=== PATIENT | female | born 1970 | race African-American/Black ===

== ENCOUNTER → 2017-03-13 | Day surgery (SDC) | payer MEDICARE, MEDICAID ==
[~2017-03-13] VITALS: Ht 160 cm; Wt 93.9 kg
[~2017-03-13] MED LIST: ALBU90AE IH; ALD50 PO; AMBR5TAB3 PO; CHOL20004 PO; CYAN100069 PO; DABI150C PO; FURO-151 PO; HYDR-3933 PO; HYDROMORPHONE HCL/PF 2MG/ML CPJ IV PRN; LABETALOL HCL 20MG/4ML CARPUJECT IV PRN; MEPERIDINE HCL/PF 25MG/ML CPJ IV PRN; METO5TAB69 PO; MORP30TA66 PO; ONDANSETRON HCL 4MG/2ML VIAL IV PRN; OXYC20TA56 PO; POTA20LI PO; PREG75CA PO; REMODULIN IV; RIOC2.5T PO
[2017-03-13 14:42] LABS: UCG SCREEN NEGATIVE
== END | disposition home or self-care (01) ==
LOC: OR 12:02
PROVIDERS: ATTEND Internal Medicine Gastroenterology
DX: E66.01 Morbid (severe) obesity due to excess calories (principal); I27.2 Other secondary pulmonary hypertension; I50.9 Heart failure, unspecified; E11.9 Type 2 diabetes mellitus without complications; J44.9 Chronic obstructive pulmonary disease, unspecified; J45.909 Unspecified asthma, uncomplicated; Z53.9 Procedure and treatment not carried out, unspecified reason
CPT/HCPCS: 81025

== ENCOUNTER 2017-07-02 10:20 | Inpatient (IN) | payer MEDICARE, MEDICAID ==
[~2017-07-02] VITALS: Ht 160 cm; Wt 86.6 kg
[~2017-07-02 10:20] MED LIST changes: -HYDROMORPHONE HCL/PF 2MG/ML CPJ IV PRN; -LABETALOL HCL 20MG/4ML CARPUJECT IV PRN; -MEPERIDINE HCL/PF 25MG/ML CPJ IV PRN; -ONDANSETRON HCL 4MG/2ML VIAL IV PRN; -POTA20LI PO; +POTA20LI2 PO
[2017-07-02] MEDS ORDERED: LEVOFLOXACIN 750MG PREMIX 150 ML IV STA (10:52)
[2017-07-02] MEDS ORDERED: IPRATROPIUM BROMIDE (0.02%) 0.5MG/2.5ML NEB HHN STA (10:52)
[2017-07-02] MEDS ORDERED: METHYLPREDNISOLONE SOD SUCC 125 MG/2 ML VIAL IV STA (10:52)
[2017-07-02] MEDS ORDERED: ALBUTEROL (0.083%) 2.5MG/3ML NEB HHN STA (10:52)
[2017-07-02] MEDS ORDERED: MORPHINE SULFATE 4 MG/ML CPJ (NOT FOR IM USE) IV ONE (11:00)
[2017-07-02] MEDS ORDERED: ONDANSETRON HCL 4MG/2ML VIAL IV ONE (11:00)
[2017-07-02 11:12] LABS: HEMATOCRIT. 30.5 % (36.0-48.0); HEMOGLOBIN. 9.8 g/dL (12.0-16.0); MEAN CORPUSCULAR HEMOGLOBIN 21.2 pg (28.0-32.0); MEAN CORPUSCULAR VOLUME 66.1 fL (81.0-99.0); MEAN PLATELET VOLUME 6.4 fl (7.4-10.4); PLATELET 263 x1000/uL (130-400); RED BLOOD CELL COUNT 4.62 mill/uL (4.2-5.4); RED CELL DISTRIBUTION WIDTH 16.4 % (11.6-14.6)
[2017-07-02 11:22] LABS: CARBON DIOXIDE 27 mEq/L (21-32); CHLORIDE 100 mEq/L (98-107)
[2017-07-02 11:27] LABS: PROTHROMBIN TIME 10.8 sec (9.4-11.6)
[2017-07-02 11:28] LABS: TROPONIN I < 0.02 ng/mL (0.00-0.04)
[2017-07-02] MEDS ORDERED: FUROSEMIDE 40MG/4ML VIAL IVP NR (11:45)
[2017-07-02] MEDS ORDERED: POTASSIUM CHLORIDE 20MEQ TABLET SR PO NR (11:45)
[2017-07-02 12:05] LABS: HCG SCREEN NEGATIVE
[2017-07-02] MEDS ORDERED: POTASSIUM CHLORIDE 20MEQ/PACKET PO ONE (12:45)
[2017-07-02] MEDS ORDERED: IPRATROPIUM/ALBUTEROL 0.5-3(2.5)MG/3ML NEB INH PRN (13:00)
[2017-07-02] MEDS ORDERED: DOCUSATE SODIUM 100MG CAPSULE PO PRN (13:00)
[2017-07-02] MEDS ORDERED: ACETAMINOPHEN 325MG TABLET PO PRN (13:00)
[2017-07-02 13:40] VITALS: BP 121/52
[2017-07-02 13:45] LABS: PLATELET ESTIMATE NORMAL
[2017-07-02] MEDS ORDERED: SODIUM CHLORIDE 0.9% 10ML VIAL ONE (14:08)
[2017-07-02] MEDS ORDERED: IOHEXOL-350 100 ML BOTTLE ONE (14:08)
[2017-07-02] MEDS ORDERED: LETAIRIS XX SCH (15:45)
[2017-07-02] MEDS ORDERED: IPRATROPIUM/ALBUTEROL 0.5-3(2.5)MG/3ML NEB HHN PRN (15:45)
[2017-07-02] MEDS ORDERED: ADEMPAS XX SCH (15:45)
[2017-07-02] MEDS ORDERED: REMODULIN XX SCH (15:45)
[2017-07-02] MEDS: MORPHINE SULFATE 2 MG/ML CPJ (NOT FOR IM USE) IV PRN ×2 (16:38→20:48)
[2017-07-02] MEDS ORDERED: ASPIRIN 81MG TABLET PO NR (17:23)
[2017-07-02] MEDS: ADEMPAS 2.5 MG XX SCH (17:51)
[2017-07-02 20:00] VITALS: BP 103/48
[2017-07-03] MEDS: IPRATROPIUM/ALBUTEROL 0.5-3(2.5)MG/3ML NEB HHN SCH ×6 (00:42→20:39)
[2017-07-03 00:46] VITALS: BP 126/56
[2017-07-03] MEDS: MORPHINE SULFATE 2 MG/ML CPJ (NOT FOR IM USE) IV PRN (00:50)
[2017-07-03 04:00] VITALS: BP 112/51
[2017-07-03] MEDS: OMEPRAZOLE 20MG CAPSULE EXTENDED RELEASE PO SCH (06:33)
[2017-07-03 06:47] LABS: BASOPHILS % 0.2 % (0.0-2.0); HEMOGLOBIN. 8.5 g/dL (12.0-16.0); LYMPHOCYTES % 9.3 % (20.0-50.0); MEAN CORPUSCULAR HEMOGLOBIN 21.2 pg (28.0-32.0); MEAN CORPUSCULAR VOLUME 67.2 fL (81.0-99.0); MEAN PLATELET VOLUME 6.9 fl (7.4-10.4); MONOCYTES % 3.5 % (2.0-8.0); PLATELET 247 x1000/uL (130-400); RED BLOOD CELL COUNT 4.02 mill/uL (4.2-5.4); RED CELL DISTRIBUTION WIDTH 16.6 % (11.6-14.6)
[2017-07-03 08:00] VITALS: BP 86/42
[2017-07-03] MEDS ORDERED: FUROSEMIDE 40MG/4ML VIAL IVP SCH (09:00)
[2017-07-03] MEDS ORDERED: POTASSIUM CHLORIDE 20MEQ TABLET SR PO NR (10:30)
[2017-07-03] MEDS: CELECOXIB 100MG CAPSULE PO SCH (10:56)
[2017-07-03] MEDS: ADEMPAS 2.5 MG XX SCH ×3 (10:56→16:56)
[2017-07-03] MEDS: LETAIRIS 10 MG TABLET XX SCH (10:56)
[2017-07-03] MEDS: GUAIFENESIN 600MG ER TABLET PO SCH ×2 (10:56→20:37)
[2017-07-03] MEDS: SPIRONOLACTONE 25MG TABLET PO SCH (10:57)
[2017-07-03] MEDS: MORPHINE SULFATE 4 MG/ML CPJ (NOT FOR IM USE) IV PRN ×3 (10:58→23:00)
[2017-07-03 11:56] VITALS: BP 102/53
[2017-07-03 15:49] VITALS: BP 119/53
[2017-07-03 20:00] VITALS: BP 98/43
[2017-07-04] VITALS (8 sets, daily range): BP systolic 87–109; BP diastolic 41–55
[2017-07-04] MEDS: IPRATROPIUM/ALBUTEROL 0.5-3(2.5)MG/3ML NEB HHN SCH ×6 (00:36→19:49)
[2017-07-04] MEDS: OMEPRAZOLE 20MG CAPSULE EXTENDED RELEASE PO SCH (06:03)
[2017-07-04 07:12] LABS: BASOPHILS % 0.9 % (0.0-2.0); EOSINOPHILS % 2.7 % (0.0-5.0); HEMATOCRIT. 24.9 % (36.0-48.0); HEMOGLOBIN. 7.8 g/dL (12.0-16.0); LYMPHOCYTES % 21.3 % (20.0-50.0); MEAN CORPUSCULAR HEMOGLOBIN 21.3 pg (28.0-32.0); MEAN CORPUSCULAR VOLUME 67.9 fL (81.0-99.0); MEAN PLATELET VOLUME 6.8 fl (7.4-10.4); MONOCYTES % 5.8 % (2.0-8.0); NEUTROPHILS % 69.3 % (40.0-76.0); PLATELET 244 x1000/uL (130-400); RED BLOOD CELL COUNT 3.67 mill/uL (4.2-5.4); RED CELL DISTRIBUTION WIDTH 16.8 % (11.6-14.6)
[2017-07-04] MEDS: SPIRONOLACTONE 25MG TABLET PO SCH (08:37)
[2017-07-04] MEDS: CELECOXIB 100MG CAPSULE PO SCH (08:37)
[2017-07-04] MEDS: LETAIRIS 10 MG TABLET XX SCH (08:37)
[2017-07-04] MEDS: ADEMPAS 2.5 MG XX SCH ×3 (08:39→16:46)
[2017-07-04] MEDS: GUAIFENESIN 600MG ER TABLET PO SCH ×2 (08:42→20:58)
[2017-07-04 11:22] LABS: T4 FREE 1.06 ng/dL (0.76-1.46)
[2017-07-04 12:01] LABS: HEMOGLOBIN 8.3 g/dL (12.0-16.0)
[2017-07-04] MEDS: TREPROSTINIL XX SCH (13:31)
[2017-07-04] MEDS: MORPHINE SULFATE 4 MG/ML CPJ (NOT FOR IM USE) IV PRN ×3 (13:47→23:21)
[2017-07-05] VITALS: BP 120/60
[2017-07-05] MEDS: IPRATROPIUM/ALBUTEROL 0.5-3(2.5)MG/3ML NEB HHN SCH ×7 (00:04→23:53)
[2017-07-05 04:00] VITALS: BP 95/40
[2017-07-05] MEDS: OMEPRAZOLE 20MG CAPSULE EXTENDED RELEASE PO SCH (06:17)
[2017-07-05 06:50] LABS: EOSINOPHILS % 7.1 % (0.0-5.0); HEMATOCRIT. 27.2 % (36.0-48.0); HEMOGLOBIN. 8.4 g/dL (12.0-16.0); LYMPHOCYTES % 29.4 % (20.0-50.0); MEAN CORPUSCULAR HEMOGLOBIN 20.9 pg (28.0-32.0); MEAN CORPUSCULAR VOLUME 67.7 fL (81.0-99.0); MEAN PLATELET VOLUME 6.7 fl (7.4-10.4); MONOCYTES % 5.4 % (2.0-8.0); NEUTROPHILS % 57.1 % (40.0-76.0); PLATELET 274 x1000/uL (130-400); RED BLOOD CELL COUNT 4.02 mill/uL (4.2-5.4); RED CELL DISTRIBUTION WIDTH 16.8 % (11.6-14.6)
[2017-07-05 07:18] LABS: CARBON DIOXIDE 24 mEq/L (21-32); CHLORIDE 104 mEq/L (98-107)
[2017-07-05] MEDS: MORPHINE SULFATE 4 MG/ML CPJ (NOT FOR IM USE) IV PRN ×3 (07:25→21:41)
[2017-07-05 07:43] VITALS: BP 119/54
[2017-07-05] MEDS: SPIRONOLACTONE 25MG TABLET PO SCH (08:59)
[2017-07-05] MEDS: LETAIRIS 10 MG TABLET XX SCH (08:59)
[2017-07-05] MEDS: GUAIFENESIN 600MG ER TABLET PO SCH ×2 (08:59→20:48)
[2017-07-05] MEDS: CELECOXIB 100MG CAPSULE PO SCH (08:59)
[2017-07-05] MEDS: ADEMPAS 2.5 MG XX SCH ×3 (09:01→16:46)
[2017-07-05] MEDS ORDERED: MORPHINE SULFATE 4 MG/ML CPJ (NOT FOR IM USE) IV NR (09:45)
[2017-07-05] MEDS ORDERED: POTASSIUM CHLORIDE 20MEQ TABLET SR PO SCH (10:00)
[2017-07-05] MEDS: FUROSEMIDE 40MG/4ML VIAL IVP SCH (10:15)
[2017-07-05] MEDS: POTASSIUM CHLORIDE 20MEQ/PACKET PO SCH (11:46)
[2017-07-05 12:00] VITALS: BP 118/56
[2017-07-05] MEDS: HYDROCODONE/APAP 7.5/325MG 1 TAB TABLET PO PRN (13:06)
[2017-07-05 16:00] VITALS: BP 92/45
[2017-07-05 20:00] VITALS: BP 98/54
[2017-07-06] VITALS (7 sets, daily range): BP systolic 86–115; BP diastolic 36–54
[2017-07-06] MEDS: IPRATROPIUM/ALBUTEROL 0.5-3(2.5)MG/3ML NEB HHN SCH ×5 (04:18→20:17)
[2017-07-06] MEDS: OMEPRAZOLE 20MG CAPSULE EXTENDED RELEASE PO SCH ×2 (06:21→08:14)
[2017-07-06 06:25] LABS: BASOPHILS % 1.1 % (0.0-2.0); EOSINOPHILS % 9.8 % (0.0-5.0); HEMOGLOBIN. 7.9 g/dL (12.0-16.0); LYMPHOCYTES % 31.3 % (20.0-50.0); MEAN CORPUSCULAR HEMOGLOBIN 21.4 pg (28.0-32.0); MEAN CORPUSCULAR VOLUME 67.6 fL (81.0-99.0); MEAN PLATELET VOLUME 6.4 fl (7.4-10.4); NEUTROPHILS % 50.8 % (40.0-76.0); PLATELET 241 x1000/uL (130-400)
[2017-07-06] MEDS: MORPHINE SULFATE 4 MG/ML CPJ (NOT FOR IM USE) IV PRN ×3 (08:16→21:16)
[2017-07-06 08:21] LABS: CARBON DIOXIDE 27 mEq/L (21-32); CHLORIDE 105 mEq/L (98-107)
[2017-07-06] MEDS: SPIRONOLACTONE 25MG TABLET PO SCH (09:50)
[2017-07-06] MEDS: GUAIFENESIN 600MG ER TABLET PO SCH ×2 (09:50→21:15)
[2017-07-06] MEDS: FUROSEMIDE 40MG/4ML VIAL IVP SCH (09:50)
[2017-07-06] MEDS: CELECOXIB 100MG CAPSULE PO SCH (09:50)
[2017-07-06] MEDS: ADEMPAS 2.5 MG XX SCH ×3 (09:51→17:07)
[2017-07-06] MEDS: LETAIRIS 10 MG TABLET XX SCH (09:51)
[2017-07-06] MEDS: POTASSIUM CHLORIDE 20MEQ/PACKET PO SCH (09:55)
[2017-07-06] MEDS ORDERED: CHOLECALCIFEROL (D3) 1000 UNIT TABLET PO SCH ×2 (10:30→14:15)
[2017-07-06] MEDS ORDERED: MULTIVITAMINS,THER W-MINERALS TABLET PO SCH ×2 (10:30→14:15)
[2017-07-06] MEDS ORDERED: ASCORBIC ACID 250 MG TABLET PO SCH (14:15)
[2017-07-06] MEDS: ONDANSETRON HCL 4MG/2ML VIAL IV PRN ×2 (14:45→21:15)
[2017-07-06] MEDS: TREPROSTINIL XX SCH (14:46)
[2017-07-06 17:39] LABS: TOTAL IRON BINDING CAPACITY 351 ug/dL (250-450)
[2017-07-06 18:16] LABS: FOLIC ACID (FOLATE) SERUM 14.2 ng/mL (>5.38)
[2017-07-06 20:04] LABS: BG BASE EXCESS 0.7 mmol/L (-2.0-2.0); BG CARBOXYHEMOGLOBIN 0.2 % (0.5-1.5); BG DEOXYHEMOGLOBIN 12.7 % (0.0-5.0); BG FRACTION INSPIRED OXYGEN 36; BG HCO3 ACT 25.1 mmol/L (22.0-26.0); BG METHEMOGLOBIN 0.3 % (0.0-1.5); BG OXYGEN SATURATION 87.2 % (92.0-98.5); BG OXYHEMOGLOBIN 86.8 % (94.0-97.0); BG PCO2 38.7 mmHg (35.0-45.0); BG PH 7.429 (7.350-7.450); BG PO2 52.9 mmHg (75.0-100.0); BG SAMPLE SITE LEFT RADIAL; BG TOTAL HEMOGLOBIN 8.9 g/dL (12.0-18.0); BG VENT MODE NASAL CANNULA
[2017-07-07] VITALS (10 sets, daily range): BP systolic 93–124; BP diastolic 39–63
[2017-07-07] MEDS: IPRATROPIUM/ALBUTEROL 0.5-3(2.5)MG/3ML NEB HHN SCH ×5 (00:26→16:17)
[2017-07-07] MEDS ORDERED: DEXTROSE 50% WATER 50ML SYRINGE IV PRN (03:00)
[2017-07-07] MEDS: ONDANSETRON HCL 4MG/2ML VIAL IV PRN ×2 (05:42→20:54)
[2017-07-07] MEDS: MORPHINE SULFATE 4 MG/ML CPJ (NOT FOR IM USE) IV PRN ×3 (05:44→20:56)
[2017-07-07] MEDS: BLOOD SUGAR DIAGNOSTIC STRIP TEST SCH ×4 (05:51→21:00)
[2017-07-07] MEDS: INSULIN LISPRO 100 UNITS/ML SUBCUT SCH ×4 (05:51→21:00)
[2017-07-07] MEDS ORDERED: CYANOCOBALAMIN 1000MCG TABLET PO SCH (07:40)
[2017-07-07] MEDS: COMPLETE MULTIVITAMIN PO SCH (09:03)
[2017-07-07] MEDS: VITAMIN D3 PO SCH (09:04)
[2017-07-07] MEDS: [UNRECOGNIZED DRUG - OTHER] PO SCH (09:05)
[2017-07-07] MEDS: POTASSIUM CHLORIDE 20MEQ/PACKET PO SCH (09:05)
[2017-07-07] MEDS: FUROSEMIDE 40MG/4ML VIAL IVP SCH (09:05)
[2017-07-07] MEDS: VITAMIN B12 3000 MCG PO SCH (09:05)
[2017-07-07] MEDS: ADEMPAS 2.5 MG XX SCH ×3 (09:05→16:22)
[2017-07-07] MEDS: CELECOXIB 100MG CAPSULE PO SCH (09:05)
[2017-07-07] MEDS: VITAMIN C PO SCH (09:05)
[2017-07-07] MEDS: CALCITONIN,SALMON, 3.7 ML NASAL SPRAY ONENSTRL SCH (09:06)
[2017-07-07] MEDS: CALCIUM CARBONATE/VITAMIN D3 500MG TABLET PO SCH (09:06)
[2017-07-07] MEDS: SPIRONOLACTONE 25MG TABLET PO SCH (09:06)
[2017-07-07] MEDS: GUAIFENESIN 600MG ER TABLET PO SCH ×2 (09:06→20:54)
[2017-07-07] MEDS: LETAIRIS 10 MG TABLET XX SCH (09:11)
[2017-07-07 09:40] LABS: BASOPHILS % 0.9 % (0.0-2.0); EOSINOPHILS % 7.2 % (0.0-5.0); HEMATOCRIT. 29.1 % (36.0-48.0); HEMOGLOBIN. 9.3 g/dL (12.0-16.0); LYMPHOCYTES % 21.4 % (20.0-50.0); MEAN CORPUSCULAR VOLUME 69.1 fL (81.0-99.0); MEAN PLATELET VOLUME 6.3 fl (7.4-10.4); NEUTROPHILS % 65.5 % (40.0-76.0); PLATELET 243 x1000/uL (130-400); RED BLOOD CELL COUNT 4.22 mill/uL (4.2-5.4); RED CELL DISTRIBUTION WIDTH 17.5 % (11.6-14.6)
[2017-07-07 09:58] LABS: CARBON DIOXIDE 25 mEq/L (21-32); CHLORIDE 106 mEq/L (98-107)
[2017-07-07] MEDS: CEFTRIAXONE 2 G in DEXTROSE 5% WATER 50 ML IV SCH (17:58)
[2017-07-07] MEDS: AZITHROMYCIN 500 MG in DEXT 5% WATER 250 ML IV SCH (17:59)
[2017-07-07] MEDS ORDERED: CEFTRIAXONE 2 G PREMIX 50 ML IV SCH (18:00)
[2017-07-08 00:15] VITALS: BP 104/49
[2017-07-08] MEDS: IPRATROPIUM/ALBUTEROL 0.5-3(2.5)MG/3ML NEB HHN SCH ×6 (01:12→20:01)
[2017-07-08] MEDS: ACETYLCYSTEINE 100MG/ML 10% VIAL 4ML INH SCH ×3 (01:12→13:02)
[2017-07-08] MEDS: MORPHINE SULFATE 4 MG/ML CPJ (NOT FOR IM USE) IV PRN ×4 (01:43→21:52)
[2017-07-08 04:46] VITALS: BP 112/52
[2017-07-08] MEDS: BLOOD SUGAR DIAGNOSTIC STRIP TEST SCH ×4 (06:05→21:58)
[2017-07-08] MEDS: INSULIN LISPRO 100 UNITS/ML SUBCUT SCH ×4 (06:05→21:00)
[2017-07-08] MEDS: OMEPRAZOLE 20MG CAPSULE EXTENDED RELEASE PO SCH (06:05)
[2017-07-08 07:39] LABS: HEMATOCRIT. 26.4 % (36.0-48.0); HEMOGLOBIN. 8.4 g/dL (12.0-16.0); MEAN CORPUSCULAR HEMOGLOBIN 21.9 pg (28.0-32.0); MEAN CORPUSCULAR VOLUME 69.1 fL (81.0-99.0); MEAN PLATELET VOLUME 6.5 fl (7.4-10.4); MONOCYTES % 5.8 % (2.0-8.0); NEUTROPHILS % 61.2 % (40.0-76.0); PLATELET 253 x1000/uL (130-400); RED BLOOD CELL COUNT 3.82 mill/uL (4.2-5.4); RED CELL DISTRIBUTION WIDTH 17.6 % (11.6-14.6)
[2017-07-08 08:00] VITALS: BP 114/52
[2017-07-08 09:07] LABS: CARBON DIOXIDE 26 mEq/L (21-32); CHLORIDE 106 mEq/L (98-107)
[2017-07-08] MEDS: VITAMIN B12 3000 MCG PO SCH (11:01)
[2017-07-08] MEDS: COMPLETE MULTIVITAMIN PO SCH (11:01)
[2017-07-08] MEDS: VITAMIN C PO SCH (11:01)
[2017-07-08] MEDS: [UNRECOGNIZED DRUG - OTHER] PO SCH (11:01)
[2017-07-08] MEDS: VITAMIN D3 PO SCH (11:01)
[2017-07-08] MEDS: ADEMPAS 2.5 MG XX SCH ×3 (11:02→16:15)
[2017-07-08] MEDS: LETAIRIS 10 MG TABLET XX SCH (11:02)
[2017-07-08] MEDS: CALCITONIN,SALMON, 3.7 ML NASAL SPRAY ONENSTRL SCH (11:03)
[2017-07-08] MEDS: GUAIFENESIN 600MG ER TABLET PO SCH ×2 (11:04→21:53)
[2017-07-08] MEDS: FUROSEMIDE 40MG/4ML VIAL IVP SCH ×2 (11:04→17:02)
[2017-07-08] MEDS: SPIRONOLACTONE 25MG TABLET PO SCH (11:04)
[2017-07-08] MEDS: CALCIUM CARBONATE/VITAMIN D3 500MG TABLET PO SCH (11:04)
[2017-07-08] MEDS: POTASSIUM CHLORIDE 20MEQ/PACKET PO SCH (11:10)
[2017-07-08 12:00] VITALS: BP 113/50
[2017-07-08] MEDS: TREPROSTINIL XX SCH (14:43)
[2017-07-08 16:00] VITALS: BP 107/48
[2017-07-08] MEDS: CEFTRIAXONE 2 G in DEXTROSE 5% WATER 50 ML IV SCH (17:02)
[2017-07-08] MEDS: AZITHROMYCIN 500 MG in DEXT 5% WATER 250 ML IV SCH (17:42)
[2017-07-08 20:00] VITALS: BP 135/50
[2017-07-08] MEDS: ONDANSETRON HCL 4MG/2ML VIAL IV PRN (21:51)
[2017-07-09] VITALS: BP 111/45
[2017-07-09] MEDS: IPRATROPIUM/ALBUTEROL 0.5-3(2.5)MG/3ML NEB HHN SCH ×6 (00:15→21:14)
[2017-07-09] MEDS: ACETYLCYSTEINE 100MG/ML 10% VIAL 4ML INH SCH ×3 (00:15→14:00)
[2017-07-09] MEDS: MORPHINE SULFATE 4 MG/ML CPJ (NOT FOR IM USE) IV PRN ×5 (02:04→21:40)
[2017-07-09 04:00] VITALS: BP 120/49
[2017-07-09 06:13] LABS: BASOPHILS % 1.1 % (0.0-2.0); EOSINOPHILS % 5.1 % (0.0-5.0); HEMATOCRIT. 26.9 % (36.0-48.0); HEMOGLOBIN. 8.5 g/dL (12.0-16.0); MEAN CORPUSCULAR HEMOGLOBIN 21.9 pg (28.0-32.0); MEAN CORPUSCULAR VOLUME 69.4 fL (81.0-99.0); MEAN PLATELET VOLUME 6.7 fl (7.4-10.4); MONOCYTES % 4.5 % (2.0-8.0); NEUTROPHILS % 72.3 % (40.0-76.0); PLATELET 250 x1000/uL (130-400); RED BLOOD CELL COUNT 3.87 mill/uL (4.2-5.4); RED CELL DISTRIBUTION WIDTH 18.1 % (11.6-14.6)
[2017-07-09] MEDS: BLOOD SUGAR DIAGNOSTIC STRIP TEST SCH ×4 (06:39→20:33)
[2017-07-09] MEDS: INSULIN LISPRO 100 UNITS/ML SUBCUT SCH ×4 (06:39→20:40)
[2017-07-09] MEDS: FUROSEMIDE 40MG/4ML VIAL IVP SCH ×2 (06:41→17:07)
[2017-07-09] MEDS: OMEPRAZOLE 20MG CAPSULE EXTENDED RELEASE PO SCH (06:41)
[2017-07-09 08:00] VITALS: BP 113/49
[2017-07-09] MEDS: VITAMIN C PO SCH (08:45)
[2017-07-09] MEDS: CALCITONIN,SALMON, 3.7 ML NASAL SPRAY ONENSTRL SCH (08:46)
[2017-07-09] MEDS: ADEMPAS 2.5 MG XX SCH ×3 (08:46→16:43)
[2017-07-09] MEDS: [UNRECOGNIZED DRUG - OTHER] PO SCH (08:46)
[2017-07-09] MEDS: VITAMIN B12 3000 MCG PO SCH (08:46)
[2017-07-09] MEDS: VITAMIN D3 PO SCH (08:46)
[2017-07-09] MEDS: POTASSIUM CHLORIDE 20MEQ/PACKET PO SCH (08:46)
[2017-07-09] MEDS: COMPLETE MULTIVITAMIN PO SCH (08:46)
[2017-07-09] MEDS: CALCIUM CARBONATE/VITAMIN D3 500MG TABLET PO SCH (08:47)
[2017-07-09] MEDS: SPIRONOLACTONE 25MG TABLET PO SCH (08:47)
[2017-07-09] MEDS: LETAIRIS 10 MG TABLET XX SCH (08:47)
[2017-07-09] MEDS: GUAIFENESIN 600MG ER TABLET PO SCH ×2 (08:48→20:27)
[2017-07-09 12:00] VITALS: BP 130/61
[2017-07-09] MEDS ORDERED: GUAIFENESIN-DM 200MG-20MG/10ML UDC PO PRN (13:45)
[2017-07-09 16:00] VITALS: BP 115/59
[2017-07-09] MEDS: ONDANSETRON HCL 4MG/2ML VIAL IV PRN (16:44)
[2017-07-09] MEDS: CEFTRIAXONE 2 G in DEXTROSE 5% WATER 50 ML IV SCH (17:07)
[2017-07-09] MEDS: AZITHROMYCIN 500 MG in DEXT 5% WATER 250 ML IV SCH (17:51)
[2017-07-09 20:00] VITALS: BP 99/43
[2017-07-10] VITALS: BP 108/52
[2017-07-10] MEDS: IPRATROPIUM/ALBUTEROL 0.5-3(2.5)MG/3ML NEB HHN SCH ×4 (01:07→13:39)
[2017-07-10] MEDS: ACETYLCYSTEINE 100MG/ML 10% VIAL 4ML INH SCH ×2 (01:08→09:46)
[2017-07-10] MEDS: MORPHINE SULFATE 4 MG/ML CPJ (NOT FOR IM USE) IV PRN ×3 (01:46→10:35)
[2017-07-10 04:00] VITALS: BP 113/47
[2017-07-10] MEDS: FUROSEMIDE 40MG/4ML VIAL IVP SCH (06:15)
[2017-07-10] MEDS: OMEPRAZOLE 20MG CAPSULE EXTENDED RELEASE PO SCH (06:15)
[2017-07-10] MEDS: BLOOD SUGAR DIAGNOSTIC STRIP TEST SCH ×2 (06:16→12:36)
[2017-07-10] MEDS: INSULIN LISPRO 100 UNITS/ML SUBCUT SCH ×2 (06:19→12:36)
[2017-07-10 07:22] LABS: BASOPHILS % 0.7 % (0.0-2.0); EOSINOPHILS % 5.4 % (0.0-5.0); HEMATOCRIT. 26.3 % (36.0-48.0); HEMOGLOBIN. 8.2 g/dL (12.0-16.0); LYMPHOCYTES % 17.3 % (20.0-50.0); MEAN CORPUSCULAR HEMOGLOBIN 21.6 pg (28.0-32.0); MEAN CORPUSCULAR VOLUME 68.9 fL (81.0-99.0); MEAN PLATELET VOLUME 6.8 fl (7.4-10.4); MONOCYTES % 7.5 % (2.0-8.0); NEUTROPHILS % 69.1 % (40.0-76.0); PLATELET 248 x1000/uL (130-400); RED BLOOD CELL COUNT 3.81 mill/uL (4.2-5.4); RED CELL DISTRIBUTION WIDTH 18.1 % (11.6-14.6)
[2017-07-10 07:47] VITALS: BP 104/37
[2017-07-10] MEDS ORDERED: AZITHROMYCIN 500 MG TABLET PO SCH (09:00)
[2017-07-10] MEDS: [UNRECOGNIZED DRUG - OTHER] PO SCH (10:08)
[2017-07-10] MEDS: VITAMIN B12 3000 MCG PO SCH (10:08)
[2017-07-10] MEDS: CALCITONIN,SALMON, 3.7 ML NASAL SPRAY ONENSTRL SCH (10:08)
[2017-07-10] MEDS: COMPLETE MULTIVITAMIN PO SCH (10:09)
[2017-07-10] MEDS: VITAMIN C PO SCH (10:09)
[2017-07-10] MEDS: VITAMIN D3 PO SCH (10:10)
[2017-07-10] MEDS: GUAIFENESIN 600MG ER TABLET PO SCH (10:11)
[2017-07-10] MEDS: SPIRONOLACTONE 25MG TABLET PO SCH (10:11)
[2017-07-10] MEDS: HYDROCODONE/APAP 7.5/325MG 1 TAB TABLET PO PRN (10:12)
[2017-07-10] MEDS: POTASSIUM CHLORIDE 20MEQ/PACKET PO SCH (10:12)
[2017-07-10] MEDS: CALCIUM CARBONATE/VITAMIN D3 500MG TABLET PO SCH (10:12)
[2017-07-10] MEDS: ADEMPAS 2.5 MG XX SCH ×2 (10:13→12:36)
[2017-07-10] MEDS: LETAIRIS 10 MG TABLET XX SCH (10:14)
[2017-07-10 12:00] VITALS: BP 105/38
[2017-07-10 13:23] VITALS: BP 105/38
== END 2017-07-10 14:41 | disposition home or self-care (01) | DRG 205 ==
LOC: SUPCPDRO 12:10 → EDBEDREQ 12:11 → ER 12:42 → 8WST 12:43 → ENRESERV 13:20
PROVIDERS: ADMIT Family Medicine Adult Medicine; ATTEND Family Medicine Adult Medicine
PROC: 30233N1 Transfusion of Nonautologous Red Blood Cells into Peripheral Vein, Percutaneous Approach (ICD-10-PCS; principal; 2017-07-07)
DX: M94.0 Chondrocostal junction syndrome [Tietze] (principal); J96.20 Acute and chronic respiratory failure, unspecified whether with hypoxia or hypercapnia; N17.9 Acute kidney failure, unspecified; I27.2 Other secondary pulmonary hypertension; I50.32 Chronic diastolic (congestive) heart failure; I11.0 Hypertensive heart disease with heart failure; K92.2 Gastrointestinal hemorrhage, unspecified; Z99.81 Dependence on supplemental oxygen; E66.01 Morbid (severe) obesity due to excess calories; E11.9 Type 2 diabetes mellitus without complications; D50.9 Iron deficiency anemia, unspecified; I10 Essential (primary) hypertension; D63.8 Anemia in other chronic diseases classified elsewhere; R07.89 Other chest pain; E87.6 Hypokalemia; J44.9 Chronic obstructive pulmonary disease, unspecified; G47.33 Obstructive sleep apnea (adult) (pediatric); G89.4 Chronic pain syndrome; I45.10 Unspecified right bundle-branch block; K21.9 Gastro-esophageal reflux disease without esophagitis; K76.0 Fatty (change of) liver, not elsewhere classified; K80.20 Calculus of gallbladder without cholecystitis without obstruction; M10.9 Gout, unspecified; M79.7 Fibromyalgia; R53.81 Other malaise; J40 Bronchitis, not specified as acute or chronic; K64.9 Unspecified hemorrhoids; Z82.3 Family history of stroke; Z68.33 Body mass index [BMI] 33.0-33.9, adult; Z82.49 Family history of ischemic heart disease and other diseases of the circulatory system; Z86.718 Personal history of other venous thrombosis and embolism; Z86.711 Personal history of pulmonary embolism
CPT/HCPCS: 36415; 36600; 71010; 71275; 76705; 80048; 80053; 80061; 82270; 82375; 82607; 82728; 82746; 82805; 82962; 83540; 83550; 83605; 83735; 83880; 84439; 84443; 84481; 84484; 84703; 85014; 85018; 85025; 85610; 86850; 86900; 86920; 87040; 87070; 93005; 93306; 93970; 94640; 94660; 94664; 94667; 96365; 96366; 96375; 97110; 97116; 97162; 97164; 99291; A4216; J0456; J0696; J1940; J1956; J2270; J2405; J2930; J7040; J7050; J7060; J7608; J7611; J7620; P9016; Q9967

== ENCOUNTER 2019-01-05 11:59 | Inpatient (IN) | payer MEDICARE, MEDICAID ==
[~2019-01-05] VITALS: Ht 160 cm; Wt 78.2 kg
[~2019-01-05 11:59] MED LIST changes: +APIX5TAB PO; -DABI150C PO; +MAGN296S49 PO; -POTA20LI2 PO; +POTA40LI2 PO; -PREG75CA PO
[2019-01-05 13:16] LABS: BASOPHILS % 2.7 % (0.0-2.0); EOSINOPHILS % 2.7 % (0.0-5.0); HEMATOCRIT. 40.7 % (36.0-48.0); HEMOGLOBIN. 13.3 g/dL (12.0-16.0); LYMPHOCYTES % 46.6 % (20.0-50.0); MEAN CORPUSCULAR HEMOGLOBIN 26.6 pg (28.0-32.0); MEAN CORPUSCULAR VOLUME 81.4 fL (81.0-99.0); MEAN PLATELET VOLUME 7.8 fl (7.4-10.4); MONOCYTES % 8.1 % (2.0-8.0); NEUTROPHILS % 39.9 % (40.0-76.0); PLATELET 288 x1000/uL (130-400); RED CELL DISTRIBUTION WIDTH 15.4 % (11.6-14.6)
[2019-01-05 13:20] LABS: CHLORIDE 106 mEq/L (98-107)
[2019-01-05] MEDS ORDERED: HYDROMORPHONE HCL/PF 2MG/ML CPJ IV NR (14:00)
[2019-01-05] MEDS ORDERED: HYDROCODONE/APAP 7.5/325MG 1 TAB TABLET PO PRN (14:00)
[2019-01-05] MEDS ORDERED: POTASSIUM CHLORIDE 20MEQ TABLET SR PO NR (14:00)
[2019-01-05] MEDS: BUMETANIDE 1MG/4ML VIAL IV SCH (16:54)
[2019-01-05] MEDS: SPIRONOLACTONE 25MG TABLET PO SCH (16:54)
[2019-01-05] MEDS ORDERED: NON FORMULARY PATIENT HOME MED XX SCH ×2 (18:30→22:15)
[2019-01-05] MEDS ORDERED: IPRATROPIUM/ALBUTEROL 0.5-3(2.5)MG/3ML NEB HHN PRN (18:30)
[2019-01-05] MEDS ORDERED: BUDESONIDE 0.5MG/2ML NEB HHN SCH (18:30)
[2019-01-05] MEDS ORDERED: MAGNESIUM/ALUMINUM HYDROXIDE/SIMETHICONE 30ML UDC PO PRN (18:45)
[2019-01-05] MEDS ORDERED: CLONIDINE 0.1MG TABLET PO PRN (18:45)
[2019-01-05] MEDS ORDERED: ACETAMINOPHEN 325MG TABLET PO PRN (18:45)
[2019-01-05] MEDS ORDERED: GUAIFENESIN 600MG ER TABLET PO SCH (21:45)
[2019-01-05] MEDS ORDERED: AZITHROMYCIN 500 MG in DEXT 5% WATER 250 ML IV NR (23:43)
[2019-01-06] VITALS (8 sets, daily range): BP systolic 96–116; BP diastolic 48–70
[2019-01-06] MEDS: IPRATROPIUM/ALBUTEROL 0.5-3(2.5)MG/3ML NEB HHN SCH ×4 (01:50→20:20)
[2019-01-06 04:44] LABS: BASOPHILS % 1.1 % (0.0-2.0); EOSINOPHILS % 2.5 % (0.0-5.0); HEMATOCRIT. 38.2 % (36.0-48.0); HEMOGLOBIN. 12.5 g/dL (12.0-16.0); LYMPHOCYTES % 32.1 % (20.0-50.0); MEAN CORPUSCULAR HEMOGLOBIN 26.8 pg (28.0-32.0); MEAN CORPUSCULAR VOLUME 81.5 fL (81.0-99.0); MONOCYTES % 7.1 % (2.0-8.0); NEUTROPHILS % 57.2 % (40.0-76.0); PLATELET 234 x1000/uL (130-400); RED BLOOD CELL COUNT 4.68 mill/uL (4.2-5.4); RED CELL DISTRIBUTION WIDTH 15.3 % (11.6-14.6)
[2019-01-06 04:50] LABS: CHLORIDE 106 mEq/L (98-107)
[2019-01-06 04:55] LABS: PARTIAL THROMBOPLASTIN TIME 23.3 sec (23.4-31.0); PROTHROMBIN TIME 10.4 sec (9.1-11.1)
[2019-01-06 04:56] LABS: PHOSPHORUS 4.2 mg/dL (2.5-4.9)
[2019-01-06] MEDS ORDERED: POTASSIUM CHLORIDE 20MEQ/PACKET PO SCH ×2 (08:00→13:15)
[2019-01-06] MEDS ORDERED: POTASSIUM CHLORIDE 20MEQ TABLET SR PO NR (10:00)
[2019-01-06] MEDS: SPIRONOLACTONE 25MG TABLET PO SCH (10:07)
[2019-01-06] MEDS: GUAIFENESIN 600MG ER TABLET PO SCH ×2 (10:07→20:09)
[2019-01-06] MEDS ORDERED: POTASSIUM CHLORIDE INJ 40 MEQ in DEXT 5% WATER 250 ML IV NR (11:00)
[2019-01-06] MEDS: BUMETANIDE 1MG/4ML VIAL IV SCH (11:06)
[2019-01-06] MEDS: LETAIRIS 10 MG PO SCH (12:40)
[2019-01-06] MEDS: UPTRAVI 800 MCG PO SCH ×2 (12:41→20:09)
[2019-01-06] MEDS: UPTRAVI 1000 MCG PO SCH ×2 (12:41→20:10)
[2019-01-06] MEDS: BUDESONIDE 0.5MG/2ML NEB HHN SCH (12:53)
[2019-01-06] MEDS: ADEMPAS 2.5 MG PO SCH ×3 (12:53→22:23)
[2019-01-06] MEDS: HYDROMORPHONE HCL/PF 2MG/ML CPJ IV PRN ×2 (15:10→20:14)
[2019-01-06] MEDS: ONDANSETRON HCL 4MG/2ML INJ IV PRN (15:15)
[2019-01-06 19:58] LABS: UCG SCREEN NEGATIVE
[2019-01-06 20:04] LABS: CLARITY URINE CLEAR (CLEAR); COLOR URINE YELLOW (YELLOW); KETONES URINE TRACE (NEGATIVE); LEUKOCYTE ESTERASE URINE NEGATIVE (NEGATIVE); NITRITE URINE NEGATIVE (NEGATIVE); OCCULT BLOOD URINE NEGATIVE (NEGATIVE); PH URINE 6.5 (4.5-8.0); PROTEIN URINE NEGATIVE (NEGATIVE); SPECIFIC GRAVITY URINE 1.012 (1.005-1.030); UROBILINOGEN URINE 0.2 E.U./dL (0.2-1.0)
[2019-01-06 20:17] LABS: *AMPHETAMINES SCREEN URINE NEGATIVE (NEGATIVE); *BARBITURATES SCREEN URINE NEGATIVE (NEGATIVE); *BENZODIAZEPINES SCREEN URINE NEGATIVE (NEGATIVE); *COCAINE SCREEN URINE NEGATIVE (NEGATIVE)
[2019-01-06 20:18] LABS: METHADONE URINE SCREEN NEGATIVE (NEGATIVE); PHENCYCLIDINE URINE SCREEN NEGATIVE (NEGATIVE)
[2019-01-06 20:20] LABS: CANNABINOID URINE SCREEN PRESUMTIVE POSITIVE (NEGATIVE); OPIATES URINE SCREEN PRESUMTIVE POSITIVE (NEGATIVE)
[2019-01-06] MEDS ORDERED: AZITHROMYCIN 500 MG in DEXT 5% WATER 250 ML IV SCH (21:00)
[2019-01-06] MEDS ORDERED: IOHEXOL-350 100 ML BOTTLE ONE (21:11)
[2019-01-07] VITALS (11 sets, daily range): BP systolic 95–114; BP diastolic 52–79
[2019-01-07] MEDS: IPRATROPIUM/ALBUTEROL 0.5-3(2.5)MG/3ML NEB HHN SCH ×4 (02:07→20:51)
[2019-01-07] MEDS: ADEMPAS 2.5 MG PO SCH ×3 (05:35→21:59)
[2019-01-07] MEDS: HYDROMORPHONE HCL/PF 2MG/ML CPJ IV PRN ×4 (05:41→22:00)
[2019-01-07] MEDS: BUDESONIDE 0.5MG/2ML NEB HHN SCH ×2 (08:05→20:50)
[2019-01-07] MEDS: SPIRONOLACTONE 25MG TABLET PO SCH ×2 (08:22→12:24)
[2019-01-07] MEDS: BUMETANIDE 1MG/4ML VIAL IV SCH ×2 (08:22→14:09)
[2019-01-07] MEDS: GUAIFENESIN 600MG ER TABLET PO SCH ×2 (08:26→20:28)
[2019-01-07] MEDS: UPTRAVI 1000 MCG PO SCH ×2 (08:26→20:29)
[2019-01-07] MEDS: LETAIRIS 10 MG PO SCH (08:26)
[2019-01-07] MEDS: UPTRAVI 800 MCG PO SCH ×2 (08:26→20:29)
[2019-01-07 08:41] LABS: BASOPHILS % 1.2 % (0.0-2.0); EOSINOPHILS % 4.4 % (0.0-5.0); HEMATOCRIT. 38.1 % (36.0-48.0); HEMOGLOBIN. 12.2 g/dL (12.0-16.0); LYMPHOCYTES % 47.1 % (20.0-50.0); MEAN CORPUSCULAR HEMOGLOBIN 26.4 pg (28.0-32.0); MEAN CORPUSCULAR VOLUME 82.3 fL (81.0-99.0); MEAN PLATELET VOLUME 8.3 fl (7.4-10.4); NEUTROPHILS % 39.3 % (40.0-76.0); PLATELET 259 x1000/uL (130-400); RED BLOOD CELL COUNT 4.63 mill/uL (4.2-5.4); RED CELL DISTRIBUTION WIDTH 15.5 % (11.6-14.6)
[2019-01-07] MEDS ORDERED: PNEUMOCOCCAL 23-VAL P-SAC VAC 0.5 ML IM ONE (09:00)
[2019-01-07] MEDS ORDERED: INFLUENZA VIRUS VACCINE(AFLURIA) 0.5ML SYR IM ONE (09:00)
[2019-01-07 09:26] LABS: CHLORIDE 104 mEq/L (98-107)
[2019-01-07] MEDS: ONDANSETRON HCL 4MG/2ML INJ IV PRN (17:53)
[2019-01-07] MEDS ORDERED: AZITHROMYCIN 500 MG in DEXT 5% WATER 250 ML IV SCH (21:00)
[2019-01-08] VITALS (12 sets, daily range): BP systolic 93–107; BP diastolic 49–69
[2019-01-08] MEDS: IPRATROPIUM/ALBUTEROL 0.5-3(2.5)MG/3ML NEB HHN SCH ×4 (00:43→20:24)
[2019-01-08] MEDS: HYDROMORPHONE HCL/PF 2MG/ML CPJ IV PRN ×5 (02:03→20:11)
[2019-01-08 06:32] LABS: BASOPHILS % 1.1 % (0.0-2.0); HEMATOCRIT. 34.9 % (36.0-48.0); HEMOGLOBIN. 11.4 g/dL (12.0-16.0); LYMPHOCYTES % 49.1 % (20.0-50.0); MEAN CORPUSCULAR HEMOGLOBIN 26.7 pg (28.0-32.0); MEAN CORPUSCULAR VOLUME 81.7 fL (81.0-99.0); MEAN PLATELET VOLUME 8.1 fl (7.4-10.4); NEUTROPHILS % 36.8 % (40.0-76.0); PLATELET 232 x1000/uL (130-400); RED BLOOD CELL COUNT 4.28 mill/uL (4.2-5.4); RED CELL DISTRIBUTION WIDTH 15.4 % (11.6-14.6)
[2019-01-08] MEDS: ADEMPAS 2.5 MG PO SCH ×3 (06:38→22:04)
[2019-01-08 08:15] LABS: CHLORIDE 106 mEq/L (98-107)
[2019-01-08] MEDS: BUDESONIDE 0.5MG/2ML NEB HHN SCH ×2 (08:49→20:24)
[2019-01-08] MEDS: SPIRONOLACTONE 25MG TABLET PO SCH ×2 (09:00→16:24)
[2019-01-08] MEDS: BUMETANIDE 1MG/4ML VIAL IV SCH ×2 (09:00→22:04)
[2019-01-08] MEDS: GUAIFENESIN 600MG ER TABLET PO SCH ×2 (09:48→20:15)
[2019-01-08] MEDS: UPTRAVI 800 MCG PO SCH ×2 (09:49→20:11)
[2019-01-08] MEDS: LETAIRIS 10 MG PO SCH (09:49)
[2019-01-08] MEDS: UPTRAVI 1000 MCG PO SCH ×2 (09:50→20:11)
[2019-01-08] MEDS ORDERED: AZITHROMYCIN 500 MG TABLET PO SCH (21:00)
[2019-01-09] VITALS (8 sets, daily range): BP systolic 97–117; BP diastolic 47–69
[2019-01-09] MEDS: HYDROMORPHONE HCL/PF 2MG/ML CPJ IV PRN ×4 (00:34→13:03)
[2019-01-09] MEDS: IPRATROPIUM/ALBUTEROL 0.5-3(2.5)MG/3ML NEB HHN SCH ×3 (02:40→14:00)
[2019-01-09] MEDS: ADEMPAS 2.5 MG PO SCH ×2 (05:00→13:06)
[2019-01-09 07:08] LABS: CHLORIDE 107 mEq/L (98-107)
[2019-01-09 07:25] LABS: BASOPHILS % 1.1 % (0.0-2.0); EOSINOPHILS % 6.2 % (0.0-5.0); HEMATOCRIT. 36.4 % (36.0-48.0); HEMOGLOBIN. 11.9 g/dL (12.0-16.0); LYMPHOCYTES % 29.6 % (20.0-50.0); MEAN CORPUSCULAR VOLUME 82.9 fL (81.0-99.0); MEAN PLATELET VOLUME 8.2 fl (7.4-10.4); MONOCYTES % 6.7 % (2.0-8.0); NEUTROPHILS % 56.4 % (40.0-76.0); PLATELET 250 x1000/uL (130-400); RED CELL DISTRIBUTION WIDTH 15.6 % (11.6-14.6)
[2019-01-09] MEDS: BUDESONIDE 0.5MG/2ML NEB HHN SCH (08:05)
[2019-01-09] MEDS: SPIRONOLACTONE 25MG TABLET PO SCH ×2 (09:00→11:20)
[2019-01-09] MEDS: BUMETANIDE 1MG/4ML VIAL IV SCH ×2 (09:00→11:19)
[2019-01-09] MEDS: UPTRAVI 1000 MCG PO SCH (09:06)
[2019-01-09] MEDS: GUAIFENESIN 600MG ER TABLET PO SCH (09:06)
[2019-01-09] MEDS: UPTRAVI 800 MCG PO SCH (09:07)
[2019-01-09] MEDS: LETAIRIS 10 MG PO SCH (09:07)
== END 2019-01-09 15:15 | disposition home or self-care (01) | DRG 189 ==
LOC: ER 11:59 → EDBEDREQSVC 12:57 → EDBEDREQ 12:57 → ENRESERV 01-06 08:08 → 5EST 01-06 08:35
PROVIDERS: ADMIT Family Medicine Adult Medicine; ATTEND Family Medicine Adult Medicine
PROC: 4A00X4Z Measurement of Central Nervous Electrical Activity, External Approach (ICD-10-PCS; principal; 2019-01-07)
DX: J96.20 Acute and chronic respiratory failure, unspecified whether with hypoxia or hypercapnia (principal); I50.32 Chronic diastolic (congestive) heart failure; R26.9 Unspecified abnormalities of gait and mobility; I27.20 Pulmonary hypertension, unspecified; D50.9 Iron deficiency anemia, unspecified; E11.9 Type 2 diabetes mellitus without complications; E66.9 Obesity, unspecified; E87.6 Hypokalemia; I11.0 Hypertensive heart disease with heart failure; J06.9 Acute upper respiratory infection, unspecified; I27.29 Other secondary pulmonary hypertension; I27.81 Cor pulmonale (chronic); J44.9 Chronic obstructive pulmonary disease, unspecified; J84.10 Pulmonary fibrosis, unspecified; K21.9 Gastro-esophageal reflux disease without esophagitis; M79.7 Fibromyalgia; Z79.01 Long term (current) use of anticoagulants; Z85.07 Personal history of malignant neoplasm of pancreas; Z86.711 Personal history of pulmonary embolism; Z86.718 Personal history of other venous thrombosis and embolism; Z76.82 Awaiting organ transplant status; Z86.73 Personal history of transient ischemic attack (TIA), and cerebral infarction without residual deficits; Z95.828 Presence of other vascular implants and grafts; Z99.81 Dependence on supplemental oxygen; Z68.30 Body mass index [BMI] 30.0-30.9, adult
CPT/HCPCS: 36415; 70496; 71045; 76700; 80048; 80305; 80320; 81025; 83735; 83880; 84100; 84443; 84484; 84550; 85379; 90686; 90732; 93005; 93306; 93970; 94640; 96365; 96375; 97162; 97166; 99285; C1893; J0456; J1170; J2405; J3480; J3490; J7060; J7620; J7626; Q9967; G0480

== ENCOUNTER 2019-06-09 12:54 | Inpatient (IN) | payer MEDICARE, MEDICAID ==
[~2019-06-09] VITALS: Ht 160 cm; Wt 73.1 kg
[2019-06-09] MEDS ORDERED: HYDROMORPHONE HCL/PF 2MG/ML CPJ IV ONE (14:30)
[2019-06-09 14:44] LABS: HEMATOCRIT. 37.6 % (36.0-48.0); HEMOGLOBIN. 13.4 g/dL (12.0-16.0); MEAN CORPUSCULAR HEMOGLOBIN 31.3 pg (28.0-32.0); MEAN CORPUSCULAR VOLUME 87.9 fL (81.0-99.0); MEAN PLATELET VOLUME 7.7 fl (7.4-10.4); PLATELET 269 x1000/uL (130-400); RED BLOOD CELL COUNT 4.28 mill/uL (4.2-5.4); RED CELL DISTRIBUTION WIDTH 14.6 % (11.6-14.6)
[2019-06-09 14:49] LABS: CHLORIDE 103 mEq/L (98-107)
[2019-06-09 14:51] LABS: PARTIAL THROMBOPLASTIN TIME 20.5 sec (23.4-31.0); PROTHROMBIN TIME 10.6 sec (9.6-11.0)
[2019-06-09] MEDS ORDERED: POTASSIUM CHLORIDE 20MEQ TABLET SR PO NR (15:30)
[2019-06-09] MEDS ORDERED: IPRATROPIUM/ALBUTEROL 0.5-3(2.5)MG/3ML NEB HHN PRN (16:00)
[2019-06-09] MEDS ORDERED: POTASSIUM CHLORIDE 20MEQ/PACKET PO ONE (16:00)
[2019-06-09 16:01] LABS: PLATELET ESTIMATE NORMAL
[2019-06-09] MEDS ORDERED: LORAZEPAM 0.5MG TABLET PO PRN (20:30)
[2019-06-09] MEDS ORDERED: GUAIFENESIN 200MG/10ML SUGAR FREE UDC PO PRN (20:30)
[2019-06-09] MEDS ORDERED: DOCUSATE SODIUM 100MG CAPSULE PO PRN (20:30)
[2019-06-09] MEDS ORDERED: ONDANSETRON HCL 4MG/2ML INJ IV PRN (20:30)
[2019-06-09] MEDS ORDERED: MAGNESIUM/ALUMINUM HYDROXIDE/SIMETHICONE 30ML UDC PO PRN (20:30)
[2019-06-09] MEDS ORDERED: ACETAMINOPHEN 325MG TABLET PO PRN (20:30)
[2019-06-09] MEDS ORDERED: CLONIDINE 0.1MG TABLET PO PRN (20:30)
[2019-06-09] MEDS ORDERED: ACETAMINOPHEN 650MG/20.3ML UDC GT PRN (20:30)
[2019-06-09 22:00] VITALS: BP 108/59
[2019-06-09 22:13] VITALS: BP 102/57
[2019-06-09] MEDS: HYDROMORPHONE HCL/PF 2MG/ML CPJ IV PRN (23:23)
[2019-06-10] VITALS (12 sets, daily range): BP systolic 97–119; BP diastolic 53–64
[2019-06-10] MEDS: IPRATROPIUM/ALBUTEROL 0.5-3(2.5)MG/3ML NEB HHN SCH ×4 (01:07→20:55)
[2019-06-10] MEDS: HYDROMORPHONE HCL/PF 2MG/ML CPJ IV PRN ×4 (03:46→22:32)
[2019-06-10 09:56] LABS: BASOPHILS % 0.9 % (0.0-2.0); EOSINOPHILS % 3.6 % (0.0-5.0); HEMATOCRIT. 34.1 % (36.0-48.0); HEMOGLOBIN. 11.7 g/dL (12.0-16.0); LYMPHOCYTES % 40.1 % (20.0-50.0); MEAN CORPUSCULAR HEMOGLOBIN 30.3 pg (28.0-32.0); MEAN CORPUSCULAR VOLUME 88.7 fL (81.0-99.0); MEAN PLATELET VOLUME 7.9 fl (7.4-10.4); MONOCYTES % 8.5 % (2.0-8.0); NEUTROPHILS % 46.9 % (40.0-76.0); PLATELET 249 x1000/uL (130-400); RED BLOOD CELL COUNT 3.84 mill/uL (4.2-5.4); RED CELL DISTRIBUTION WIDTH 14.3 % (11.6-14.6)
[2019-06-10 11:38] LABS: T4 FREE 1.12 ng/dL (0.76-1.46)
[2019-06-10] MEDS: LETAIRIS 10 MG XX SCH (12:49)
[2019-06-10] MEDS: SPIRONOLACTONE 25MG TABLET PO SCH (12:49)
[2019-06-10] MEDS: ADEMPAS 2.5 MG XX SCH ×2 (12:49→17:12)
[2019-06-10] MEDS: UPTRAVI 800 MCG PO SCH ×2 (13:20→17:12)
[2019-06-10] MEDS ORDERED: POTASSIUM CHLORIDE 20MEQ/PACKET PO SCH (13:20)
[2019-06-10] MEDS: UPTRAVI XX SCH ×2 (13:20→17:12)
[2019-06-10] MEDS: DIPHENHYDRAMINE 50MG/ML VIAL IV PRN (14:27)
[2019-06-10] MEDS ORDERED: POTASSIUM CHLORIDE INJ 40 MEQ in DEXT 5% WATER 500 ML IV SCH (14:30)
[2019-06-10] MEDS: FUROSEMIDE 20MG TABLET PO SCH (20:45)
[2019-06-11] VITALS (12 sets, daily range): BP systolic 95–123; BP diastolic 44–69
[2019-06-11] MEDS: IPRATROPIUM/ALBUTEROL 0.5-3(2.5)MG/3ML NEB HHN SCH ×2 (00:41→04:35)
[2019-06-11] MEDS: HYDROMORPHONE HCL/PF 2MG/ML CPJ IV PRN ×5 (04:08→22:34)
[2019-06-11 06:29] LABS: EOSINOPHILS % 6.8 % (0.0-5.0); HEMATOCRIT. 35.2 % (36.0-48.0); HEMOGLOBIN. 12.1 g/dL (12.0-16.0); LYMPHOCYTES % 38.9 % (20.0-50.0); MEAN CORPUSCULAR HEMOGLOBIN 30.8 pg (28.0-32.0); MEAN CORPUSCULAR VOLUME 89.6 fL (81.0-99.0); MONOCYTES % 7.1 % (2.0-8.0); NEUTROPHILS % 46.2 % (40.0-76.0); PLATELET 244 x1000/uL (130-400); RED BLOOD CELL COUNT 3.93 mill/uL (4.2-5.4); RED CELL DISTRIBUTION WIDTH 14.5 % (11.6-14.6)
[2019-06-11 06:30] LABS: CHLORIDE 106 mEq/L (98-107)
[2019-06-11] MEDS: FUROSEMIDE 20MG TABLET PO SCH ×2 (08:29→20:48)
[2019-06-11] MEDS: UPTRAVI 800 MCG PO SCH ×2 (08:29→17:43)
[2019-06-11] MEDS: LETAIRIS 10 MG XX SCH (08:29)
[2019-06-11] MEDS: ADEMPAS 2.5 MG XX SCH ×3 (08:29→17:43)
[2019-06-11] MEDS: UPTRAVI XX SCH ×2 (08:30→17:43)
[2019-06-11] MEDS: SPIRONOLACTONE 25MG TABLET PO SCH (08:31)
[2019-06-11] MEDS: DIPHENHYDRAMINE 50MG/ML VIAL IV PRN (11:31)
[2019-06-12] VITALS (8 sets, daily range): BP systolic 96–110; BP diastolic 53–89
[2019-06-12] MEDS: IPRATROPIUM/ALBUTEROL 0.5-3(2.5)MG/3ML NEB HHN SCH ×3 (01:15→08:45)
[2019-06-12] MEDS: HYDROMORPHONE HCL/PF 2MG/ML CPJ IV PRN ×3 (03:06→11:58)
[2019-06-12] MEDS: DIPHENHYDRAMINE 50MG/ML VIAL IV PRN (04:43)
[2019-06-12] MEDS: LETAIRIS 10 MG XX SCH (09:32)
[2019-06-12] MEDS: ADEMPAS 2.5 MG XX SCH ×2 (09:33→11:58)
[2019-06-12] MEDS: UPTRAVI 800 MCG PO SCH (09:33)
[2019-06-12] MEDS: UPTRAVI XX SCH (09:34)
[2019-06-12] MEDS: FUROSEMIDE 20MG TABLET PO SCH (09:34)
[2019-06-12] MEDS: SPIRONOLACTONE 25MG TABLET PO SCH (09:35)
[2019-06-12] MEDS ORDERED: POTASSIUM CHLORIDE 20MEQ TABLET SR PO NR (11:15)
[2019-06-12] MEDS ORDERED: POTASSIUM CHLORIDE 20MEQ/PACKET PO NR (13:00)
[2019-06-12] MEDS ORDERED: ATORVASTATIN CALCIUM 40MG TABLET PO SCH (21:00)
== END 2019-06-12 13:16 | disposition home or self-care (01) | DRG 682 ==
LOC: ER 12:54 → 3WST 14:21 → EDBEDREQSVC 17:07 → ENRESERV 17:09 → 3WST 06-11 07:37
PROVIDERS: ADMIT Family Medicine Adult Medicine; ATTEND Family Medicine Adult Medicine
DX: N17.9 Acute kidney failure, unspecified (principal); J96.00 Acute respiratory failure, unspecified whether with hypoxia or hypercapnia; I26.99 Other pulmonary embolism without acute cor pulmonale; C25.9 Malignant neoplasm of pancreas, unspecified; I50.32 Chronic diastolic (congestive) heart failure; G90.8 Other disorders of autonomic nervous system; D64.9 Anemia, unspecified; E78.5 Hyperlipidemia, unspecified; E87.6 Hypokalemia; F17.200 Nicotine dependence, unspecified, uncomplicated; I11.0 Hypertensive heart disease with heart failure; I27.29 Other secondary pulmonary hypertension; I27.81 Cor pulmonale (chronic); J44.9 Chronic obstructive pulmonary disease, unspecified; J84.10 Pulmonary fibrosis, unspecified; K58.9 Irritable bowel syndrome, unspecified; M10.9 Gout, unspecified; G43.909 Migraine, unspecified, not intractable, without status migrainosus; R07.89 Other chest pain; L29.9 Pruritus, unspecified; M79.7 Fibromyalgia; T50.2X5A Adverse effect of carbonic-anhydrase inhibitors, benzothiadiazides and other diuretics, initial encounter; Y92.89 Other specified places as the place of occurrence of the external cause; Z79.01 Long term (current) use of anticoagulants; Z82.49 Family history of ischemic heart disease and other diseases of the circulatory system; Z85.07 Personal history of malignant neoplasm of pancreas; Z86.718 Personal history of other venous thrombosis and embolism; Z95.828 Presence of other vascular implants and grafts; Z88.5 Allergy status to narcotic agent; Z88.8 Allergy status to other drugs, medicaments and biological substances; Z79.51 Long term (current) use of inhaled steroids; Z79.899 Other long term (current) drug therapy; Z79.1 Long term (current) use of non-steroidal anti-inflammatories (NSAID)
CPT/HCPCS: 36415; 71045; 71250; 76700; 78582; 80048; 80061; 82105; 82150; 83735; 83880; 84439; 84443; 84481; 84484; 86301; 86304; 93005; 93306; 94640; 96374; 99285; A9558; J1170; J1200; J3480; J7060; J7620

== ENCOUNTER → 2021-10-03 | Outpatient (CLI) | payer MEDICARE, MEDICAID ==
[~2021-10-03] MED LIST changes: -ALBU90AE IH; +ALLO100T MT; -APIX5TAB PO; +ATOR20TA MT; +BUME2TAB34 MT; -CHOL20004 PO; -CYAN100069 PO; -FURO-151 PO; -HYDR-3933 PO; -MAGN296S49 PO; -METO5TAB69 PO; +METO5TAB7 MT; -MORP30TA66 PO; +OXYC-105 MT; +OXYC10TA48 MT; -OXYC20TA56 PO; +POTA20LI52 PO; -POTA40LI2 PO; +PROM473S4 MT; -REMODULIN IV; +SELE1600 PO
== END | disposition home or self-care (01) ==
LOC: LAB 12:42
PROVIDERS: ATTEND Internal Medicine Gastroenterology
DX: Z11.52 Encounter for screening for COVID-19 (principal); Z20.822 Contact with and (suspected) exposure to COVID-19
CPT/HCPCS: 87426